=== PATIENT | male | born 1965 | race Caucasian/White ===

== ENCOUNTER 2024-11-13 09:18 | Outpatient (AMB) | payer OTHER, SELFPAY ==
[2024-11-13 09:26] VITALS: BP 120/74; PULSE 90; O2SAT 96; BMI 30.8
--- NOTE | 2024-11-13 09:26 | HO.NEPHOV_ITS ---
Vital Signs 11/13/24 09:26 Height 5 ft 10 in Weight 215 lb BMI 30.8 BP 120/74 Blood Pressure Location Lt brachial Position Sitting Pulse 90 Pulse Source Pulse Oximeter Pulse Oximetry (%) 96 Oxygen Delivery Method Room Air Intake Visit Reasons: ENP: Hypophosphatemia/ Conf Brazer Assembler Required: No Accompanied by: Self / Same As Patient Allergies cephalexin Allergy (Unknown, Verified 11/13/24 09:29) Unknown shellfish derived Allergy (Unknown, Verified 11/13/24 09:29) Seizure lodinated glycerol Allergy (Unknown, Uncoded 11/08/24 15:32) Unknown Medication List - Last Reconciled 11/13/24 by Antione Resendiz MD amlodipine 5 mg PO DAILY cholecalciferol (vitamin D3) 20 mcg PO DAILY lisinopril 20 mg PO DAILY magnesium aspart,citrate,oxide mg PO DAILY PRN tramadol 50 mg PO BEDTIME warfarin 10 mg PO DAILY HPI Comments Details: 59 yr old man referred for hypophosphatemia h/o HTN: BP well controlled Not on diuretics Currently on Amlodipine and Lisinopril h/o Leg injury in early . Developed severe reaction to IV contrast followed by cellulitis. Treated with Cephalexin and had 2-3 episodes of seizures. No further episodes Consumes 2 glasses of wine Non smoker Works in [employer] [facility] Medical History (Updated 11/13/24 @ 09:43 by Antione Resendiz MD) Osteoarthritis Hyperlipidemia Hypercoagulable state Deep vein thrombosis Benign essential hypertension Surgical History History of colonoscopy (~10/2019) Review of Systems Const Denies fever(s) and Denies weight loss Card Denies chest pain Resp Denies cough and Denies hemoptysis GI Denies abdominal pain, Denies diarrhea and Denies nausea Musc Denies back pain Neuro Denies focal weakness Physical Exam Vital Signs: Last Vital Signs Pulse 90 11/13/24 09:26 BP 120/74 11/13/24 09:26 Pulse Ox 96 11/13/24 09:26 Oxygen Delivery Method Room Air 11/13/24 09:26 BMI result Body Mass Index 30.8 Results Reviewed Results Reviewed: Phosphorous 1.9 Nephrology Results: No Data to Display Assessment & Plan Assessment & Plan (1) Hypophosphatemia: Code(s): E83.39 - Other disorders of phosphorus metabolism Category: Medical Plan 59 yr old man with Hypophosphatemia and normal renal function Work up initiated including a 24 hr urine collection Inadequate intakes vs excessive loss Recheck Ca/Mg and iPTH Further work up based on above No need for supplements yet Alcohol could be a potential source of Phosphaturia- urine studies should help to delineate this Reassured Orders: Orders Parathyroid Hormone Intact Today E83.39 - Other disorders of phosphorus metabolism Sodium, 24Hr Urine Group Today E83.39 - Other disorders of phosphorus metabolism Calcium, 24 Hr Ur Today E83.39 - Other disorders of phosphorus metabolism Basic Metabolic Panel Today E83.39 - Other disorders of phosphorus metabolism Magnesium Today E83.39 - Other disorders of phosphorus metabolism Phosphorus Today E83.39 - Other disorders of phosphorus metabolism Creatinine, 24 Hr Group Today E83.39 - Other disorders of phosphorus metabolism Phosphorus 24Hr Urine Group Today E83.39 - Other disorders of phosphorus metabolism Coding Level of Care Code New Pt Level 4 (93877) Diagnoses Hypophosphatemia E83.39
== END 2024-11-13 09:47 | disposition home or self-care (01) ==
PROVIDERS: PCP Family Medicine; Referring Provider Family Medicine; Visit Provider Internal Medicine Hypertension Specialist
DX: E83.39 Other disorders of phosphorus metabolism (principal)
CPT/HCPCS: 99204

== ENCOUNTER 2024-12-18 08:18 | Outpatient (AMB) | payer OTHER, SELFPAY ==
--- NOTE | 2024-12-18 08:26 | HO.NEPHOV ---
Vital Signs 12/18/24 08:27 Height 5 ft 10 in Weight 215 lb BMI 30.8 BP 120/76 Blood Pressure Location Lt brachial Position Sitting Pulse 71 Pulse Source Pulse Oximeter Pulse Oximetry (%) 97 Oxygen Delivery Method Room Air Intake Visit Reasons: 4-6wk follow-up w/labs/ Conf Housing Management Representative Required: No Accompanied by: Self / Same As Patient Allergies cephalexin Allergy (Unknown, Verified 12/18/24 08:32) Unknown shellfish derived Allergy (Unknown, Verified 12/18/24 08:32) Seizure lodinated glycerol Allergy (Unknown, Uncoded 11/08/24 15:32) Unknown Medication List - Last Reconciled 12/18/24 by Antione Resendiz MD amlodipine 5 mg PO DAILY cholecalciferol (vitamin D3) 20 mcg PO DAILY lisinopril 20 mg PO DAILY magnesium aspart,citrate,oxide mg PO DAILY PRN tramadol 50 mg PO BEDTIME warfarin 10 mg PO DAILY HPI Comments Details: 59 yr old man referred for hypophosphatemia h/o HTN: BP well controlled Not on diuretics Currently on Amlodipine and Lisinopril h/o Leg injury in early . Developed severe reaction to IV contrast followed by cellulitis. Treated with Cephalexin and had 2-3 episodes of seizures. No further episodes Consumes 2 glasses of wine Non smoker Works in [employer] 12/18/2024. Overall Karl has been doing well. Recently had some glass of wine along with chocolate chip cookies and subsequently developed racing heart and his blood pressure was 240/120. He did not seek any medical attention. This subsided after 5 or 10 minutes. Apparently he has had a similar episode in the past. [facility] Medical History (Updated 11/13/24 @ 09:43 by Antione Resendiz MD) Osteoarthritis Hyperlipidemia Hypercoagulable state Deep vein thrombosis Benign essential hypertension Surgical History History of colonoscopy (~10/2019) Physical Exam Vital Signs: Last Vital Signs Pulse 71 12/18/24 08:27 BP 120/76 12/18/24 08:27 Pulse Ox 97 12/18/24 08:27 Oxygen Delivery Method Room Air 12/18/24 08:27 BMI result Body Mass Index 30.8 Comfortable Neck supple no JVD. Lungs entry equal no rales. Heart S1-S2 heard no gallop or rub. Abdomen soft nontender. Neuro alert awake oriented. No asterixis. Extremities no edema. Const General: comfortable; No acute distress Orientation/consciousness: patient oriented x3 Eyes General: appearance normal, both eyes and all related structures Visual Collazo: normal visual collazo by confrontation Neck Neck: Yes supple and Yes no JVD Resp Effort & Inspection: normal respiratory effort and respiratory effort not decreased Cardio Palpation: no palpable S3 and no palpable S4 Heart sounds: no rubs GI Inspection: Yes normal to inspection Palpation (GI): Soft to palpation Percussion: Yes normal to percussion Auscultation: normal bowel sounds General: Yes no CVA tenderness Back/Spine/Pelvis Back: no CVA tenderness Skin General skin exam: no petechiae and no purpura Neuro General: patient oriented x3 and no focal motor deficits Extrem General: No clubbing and No edema Results Reviewed Results Reviewed: Phosphorous 1.9 Repeat serum phosphorus 2.3. Twenty-four urine collection showed phosphatase urea with a urine phosphorus excretion of 1849 mg. He had hypercalciuria as well Intact PTH was normal. Serum calcium was normal. Serum electrolytes normal. No hypokalemia. No hyperchloremic metabolic acidosis. Nephrology Results: No Data to Display Assessment & Plan Assessment & Plan (1) Hypophosphatemia: Code(s): E83.39 - Other disorders of phosphorus metabolism Category: Medical Plan 59 yr old man with Hypophosphatemia and normal renal function 24 hour urine collection reveals hyperphosphaturia and hypercalciuria. Since he has normal serum electrolytes without any hyperchloremic metabolic acidosis along with normal calcium I do not believe he has Fanconi syndrome. I have ordered 25 hydroxy and 125 hydroxy vitamin-D levels. Intact PTH was normal. Serum calcium was normal. No evidence of hyperparathyroidism If the vitamin-D levels were normal then he would require FGF 23 ( fibroblast growth factor 23) levels as this could be the potential cause for hyperphosphaturia In the meantime I have added phosphorus supplementation since he has persistent phosphoturia. Encouraged him to increase we will phosphate intake for now. He should refrain from excessive alcohol intake as this could also be a potential factor for hypophosphatemia Orders: Orders Phosphorus 4 Weeks E83.39 - Other disorders of phosphorus metabolism Vitamin D 25-OH Total 4 Weeks E8.39 - Other disorders of phosphorus metabolism Magnesium 4 Weeks E8.39 - Other disorders of phosphorus metabolism Calcium 4 Weeks E8.39 - Other disorders of phosphorus metabolism Vitamin D 1,25 dihydroxy 4 Weeks E8. - Other disorders of phosphorus metabolism Medications: New potassium,sodium monobas phos 305-700 mg 1 tab PO DAILY 90 tabs 0RF Coding Level of Care Code Est Pt Level 4 (76749) Diagnoses Hypophosphatemia E8
[2024-12-18 08:27] VITALS: BP 120/76; PULSE 71; O2SAT 97; BMI 30.8
== END 2024-12-18 09:00 | disposition home or self-care (01) ==
PROVIDERS: PCP Family Medicine; Visit Provider Internal Medicine Hypertension Specialist
DX: E83.39 Other disorders of phosphorus metabolism (principal)
CPT/HCPCS: 99214

== ENCOUNTER → 2024-12-18 08:18 | Outpatient (BNVA) | payer OTHER, SELFPAY | PROVIDERS: PCP Family Medicine; Visit Provider Internal Medicine Hypertension Specialist ==

== ENCOUNTER 2025-01-29 08:48 | Outpatient (AMB) | payer OTHER, SELFPAY ==
[2025-01-29 08:50] VITALS: BP 120/74; PULSE 79; O2SAT 98; BMI 31.8
--- NOTE | 2025-01-29 08:50 | HO.NEPHOV_ITS ---
Vital Signs 01/29/25 08:50 Height 5 ft 10 in Weight 221 lb 6 oz BMI 31.8 BP 120/74 Blood Pressure Location Lt brachial Position Sitting Pulse 79 Pulse Source Pulse Oximeter Pulse Oximetry (%) 98 Oxygen Delivery Method Room Air Intake Visit Reasons: 6wk follow-up w/labs/ Conf Allergies cephalexin Allergy (Unknown, Verified 01/29/25 08:52) Unknown shellfish derived Allergy (Unknown, Verified 01/29/25 08:52) Seizure lodinated glycerol Allergy (Unknown, Uncoded 01/29/25 08:52) Unknown Medication List - Last Reconciled 01/29/25 by Antione Resendiz MD amlodipine 5 mg PO DAILY cholecalciferol (vitamin D3) 20 mcg PO DAILY lisinopril 20 mg PO DAILY magnesium aspart,citrate,oxide mg PO DAILY PRN potassium,sodium monobas phos 305-700 mg 1 tab PO DAILY warfarin 10 mg PO DAILY HPI Comments Details: 59 yr old man referred for hypophosphatemia h/o HTN: BP well controlled Not on diuretics Currently on Amlodipine and Lisinopril h/o Leg injury in early . Developed severe reaction to IV contrast followed by cellulitis. Treated with Cephalexin and had 2-3 episodes of seizures. No further episodes Consumes 2 glasses of wine Non smoker Works in [employer] 12/18/2024. Overall Karl has been doing well. Recently had some glass of wine along with chocolate chip cookies and subsequently developed racing heart and his blood pressure was 240/120. He did not seek any medical attention. This subsided after 5 or 10 minutes. Apparently he has had a similar episode in the past. [facility] Medical History Osteoarthritis Hyperlipidemia Hypercoagulable state Deep vein thrombosis Benign essential hypertension Surgical History History of colonoscopy (~10/2019) Physical Exam Vital Signs: Last Vital Signs Pulse 79 01/29/25 08:50 BP 120/74 01/29/25 08:50 Pulse Ox 98 01/29/25 08:50 Oxygen Delivery Method Room Air 01/29/25 08:50 BMI result Body Mass Index 31.8 Comfortable Neck supple no JVD. Lungs entry equal no rales. Heart S1-S2 heard no gallop or rub. Abdomen soft nontender. Neuro alert awake oriented. No asterixis. Extremities no edema. Results Reviewed Nephrology Results: No Data to Display Assessment & Plan Assessment & Plan (1) Hypophosphatemia: Code(s): E83.39 - Other disorders of phosphorus metabolism Category: Medical Plan 59 yr old man with Hypophosphatemia and normal renal function 24 hour urine collection reveals hyperphosphaturia and hypercalciuria. Since he has normal serum electrolytes without any hyperchloremic metabolic acidosis along with normal calcium I do not believe he has Fanconi syndrome. I have ordered 25 hydroxy and 125 hydroxy vitamin-D levels. ~ Results not available. Intact PTH was normal. Serum calcium was normal. No evidence of hyperparathyroidism If the vitamin-D levels were normal then he would require FGF 23 ( fibroblast growth factor 23) levels as this could be the potential cause for hyperphosphaturia In the meantime I have added phosphorus supplementation since he has persistent phosphoturia. Encouraged him to increase we will phosphate intake for now. He should refrain from excessive alcohol intake as this could also be a potential factor for hypophosphatemia Orders: Orders Phosphorus 6 Months E83.39 - Other disorders of phosphorus metabolism Coding Level of Care Code Est Pt Level 4 (91335) Diagnoses Hypophosphatemia E83.39
== END 2025-01-29 09:04 | disposition home or self-care (01) ==
LOC: HO.HKAS 08:49
PROVIDERS: PCP Family Medicine; Visit Provider Internal Medicine Hypertension Specialist
DX: E83.39 Other disorders of phosphorus metabolism (principal)
CPT/HCPCS: 99214

== ENCOUNTER 2025-07-14 08:03 | Outpatient (REF) | payer OTHER, SELFPAY | END 2025-07-14 08:04 | disposition home or self-care (01) | LOC: HO.HKASLDS 08:03 | PROVIDERS: Visit Provider Internal Medicine Hypertension Specialist | DX: E83.39 Other disorders of phosphorus metabolism (principal) | CPT/HCPCS: 36415; 84100 ==

== ENCOUNTER 2025-07-16 08:22 | Outpatient (AMB) | payer OTHER, SELFPAY ==
[2025-07-16 08:32] VITALS: BP 122/80; PULSE 72; O2SAT 98; BMI 30.3
--- NOTE | 2025-07-16 08:32 | HO.NEPHOV ---
Vital Signs 07/16/25 08:32 Height 5 ft 10 in Weight 211 lb BMI 30.3 BP 122/80 Blood Pressure Location Lt brachial Position Sitting Pulse 72 Pulse Source Pulse Oximeter Pulse Oximetry (%) 98 Oxygen Delivery Method Room Air Intake Visit Reasons: 6 month f/u Angiographer Required: No Accompanied by: Self / Same As Patient Allergies cephalexin Allergy (Unknown, Verified 07/16/25 08:36) Unknown shellfish derived Allergy (Unknown, Verified 07/16/25 08:36) Seizure lodinated glycerol Allergy (Unknown, Uncoded 01/29/25 08:52) Unknown Medication List - Last Reconciled 07/16/25 by Antione Resendiz MD amlodipine 5 mg PO DAILY cholecalciferol (vitamin D3) 20 mcg PO DAILY lisinopril 20 mg PO DAILY magnesium aspart,citrate,oxide mg PO DAILY PRN potassium,sodium monobas phos 305-700 mg (K-Phos No 2) 1 tab PO DAILY warfarin 10 mg PO DAILY HPI Comments Details: 59 yr old man referred for hypophosphatemia h/o HTN: BP well controlled Not on diuretics Currently on Amlodipine and Lisinopril h/o Leg injury in early . Developed severe reaction to IV contrast followed by cellulitis. Treated with Cephalexin and had 2-3 episodes of seizures. No further episodes Consumes 2 glasses of wine Non smoker Works in [employer] 12/18/2024. Overall Karl has been doing well. Recently had some glass of wine along with chocolate chip cookies and subsequently developed racing heart and his blood pressure was 240/120. He did not seek any medical attention. This subsided after 5 or 10 minutes. Apparently he has had a similar episode in the past. 07/16/25 - The patient is a 59-year-old male presenting with hypophosphatemia management. - Persistent hypophosphatemia despite phosphorus supplementation. - Increased phosphorus excretion in urine suggests renal tubular defect. - No new medications; current medications include vitamin D3 and Isopril. - High water intake contributing to nocturia. - Occasional alcohol consumption with no significant intake recently. - Regular physical activity: walking six to eight miles daily. - Fatigue and sleep disturbances possibly related to stress. [facility] Medical History Osteoarthritis Hyperlipidemia Hypercoagulable state Deep vein thrombosis Benign essential hypertension Surgical History History of colonoscopy (~10/2019) Physical Exam Vital Signs: Last Vital Signs Pulse 72 07/16/25 08:32 BP 122/80 07/16/25 08:32 Pulse Ox 98 07/16/25 08:32 Oxygen Delivery Method Room Air 07/16/25 08:32 BMI result Body Mass Index 30.3 Comfortable Neck supple no JVD. Lungs entry equal no rales. Heart S1-S2 heard no gallop or rub. Abdomen soft nontender. Neuro alert awake oriented. No asterixis. Extremities no edema. Results Reviewed Nephrology Results: Phosphorus, (2.7-4.5) 1.7 mg/dL L 07/14/25 Assessment & Plan Assessment & Plan (1) Hypophosphatemia: Code(s): E83.39 - Other disorders of phosphorus metabolism Category: Medical Plan 59 yr old man with Hypophosphatemia and normal renal function 24 hour urine collection reveals hyperphosphaturia (1875) and hypercalciuria. Follow 25 hydroxy and 125 hydroxy vitamin-D levels. ~ Results not available. Intact PTH was normal. Serum calcium was normal. No evidence of hyperparathyroidism If the vitamin-D levels were normal then he would require FGF 23 ( fibroblast growth factor 23) levels as this could be the potential cause for hyperphosphaturia Increase phosphorus supplementation - 1 tab bid Continue to refrain from alcohol intake Orders: Orders Magnesium 2 Months E83.39 - Other disorders of phosphorus metabolism Phosphorus 2 Months E83.39 - Other disorders of phosphorus metabolism Cortisol, Free 2 Months E83.39 - Other disorders of phosphorus metabolism, R53.83 - Other fatigue Calcium 2 Months E83.39 - Other disorders of phosphorus metabolism Potassium 2 Months E83.39 - Other disorders of phosphorus metabolism TSH reflex Free T4 2 Months E83.39 - Other disorders of phosphorus metabolism, R53.83 - Other fatigue Medications: Changed From potassium,sodium monobas phos 305-700 mg (K-Phos No 2) 1 tab PO DAILY 30 tabs 2RF To potassium,sodium monobas phos 305-700 mg (K-Phos No 2) 1 tab PO BID 180 tabs 3RF Coding Level of Care Code Est Pt Level 4 (32050) Diagnoses Hypophosphatemia E83.39
--- OUTSIDE RECORDS SUMMARY | 2025-07-16 08:54 | XMS_ITS | Encounter Summary ---
Author Organization [facility] Address [address] [place] [address] Phone Care Team Providers Care Concrete Block Layer Name Role Phone Unavailable Primary Care Provider Unavailabl e Encounter Details Date Type Department Care Team (Late st Contact Info) Description 08/01/2019 Ancillary Orders [facility] [address] [place] [address] [place] [address] Woody Rosario, DO [address] [place] [address] Chest tightness Social History Tobacco Use Types Packs/Day Years Used Date Smoking Tobacco: Never Assessed Sex and Gender Information Value Date Recorded Sex Assigned at Not on file Legal Sex Male 11:13 AM EDT Gender Identity Not on file Sexual Orientation Not on file documented as of this encounter Plan of Treatment Not on file documented as of this encounter Results * Holter Monitor 24 Hours (08/01/2019 11:43 AM EDT) Anatomical Region Laterality Modality Heart Other Narrative 08/01/2019 12:43 PM EDT 24-hour monitor: Baseline rhythm is sinus with a minimum heart rate of 50, maximum 123, average 77 bpm. There are no long pauses present. Rare PACs and PVCs present. There is no diary submitted. There are no patient event markers. Impression: Normal 24-hour monitor. No diary submitted. Procedure Note Julito Julio MD - 08/01/2019 24-hour monitor: Baseline rhythm is sinus with a minimum heart rate of 50,maximum 123, average 77 bpm. There are no long pauses present. Rare PACsand PVCs present. There is no diary submitted. There are no patientevent markers. Impression: Normal 24-hour monitor. No diary submitted. us Woody Rosario DO [facility] ORDERABLE S Final Result documented in this encounter Visit Diagnoses Diagnosis Chest tightness Other chest pain Chest tightness Other chest pain documented in this encounter Additional Source Comments The information contained in this document represents components of the legal health record. It is not the complete legal health record.[facility]
--- OUTSIDE RECORDS SUMMARY | 2025-07-16 08:54 | XMS_ITS | Clinical Summary ---
Author Organization [facility] Address [address] [place], [place] [id number] Phone Care Team Providers Care Armor Reconnaissance Vehicle Crewman Name Role Phone Unavailable Primary Care Provider Unavailabl e Social History Tobacco Use Types Packs/Day Years Used Date Smoking Tobacco: Never Assessed Education Answer Date Recorded Are you interested in more education? Not on blaise e 02/10/2023 Are you concerned about learning? Not on file 02/10/2023 No 02/10/2023 No 02/10/2023 Digital Access Answer Date Recorded No 03/14/2023 No 03/14/2023 No 03/14/2023 Reliable internet access at home? Not on file 03/14/2023 Device with a working camera? Not on file Sex and Gender Information Value Date Recorded Sex Assigned at Not on file Legal Sex Male 11:13 AM EDT Gender Identity Not on file Sexual Orientation Not on file Plan of Treatment Not on file Medical Devices Not on file [place] [address] PPO PPO PPO PPO PPO PPO PPO [place] [place] [address] PPO Additional Source Comments The information contained in this document represents components of the legal health record. It is not the complete legal health record.[facility]
== END 2025-07-16 08:52 | disposition home or self-care (01) ==
LOC: HO.HKAS 08:23
PROVIDERS: PCP Family Medicine; Visit Provider Internal Medicine Hypertension Specialist
DX: E83.39 Other disorders of phosphorus metabolism (principal)
CPT/HCPCS: 99214

== ENCOUNTER 2025-09-15 09:17 | Outpatient (REF) | payer OTHER, SELFPAY ==
--- OUTSIDE RECORDS SUMMARY | 2025-09-15 10:57 | XMS_ITS | Encounter Summary ---
Author Organization [facility] Address [address] [place] [address] Phone Care Team Providers Care Glass Smoother Name Role Phone Unavailable Primary Care Provider Unavailabl e Encounter Details Date Type Department Care Team (Late st Contact Info) Description 08/01/2019 Ancillary Orders [facility] [address] [place] [address] [place] [address] Woody Rosario, DO [address] [place] [address] Chest tightness Social History Tobacco Use Types [...] It is not the complete legal health record.[facility]
--- OUTSIDE RECORDS SUMMARY | 2025-09-15 10:57 | XMS_ITS | Clinical Summary ---
Author Organization [facility] Address [address] [place] [phone] Phone Care Team Providers Care Manager Health Name Role Phone Unavailable Primary Care Provider [...] on file Medical Devices Not on file Additional Source Comments The information contained in this document represents components of the legal health record. It is not the complete legal health record.[facility]
[2025-09-15 14:07] LABS: Calcium 8.7 mg/dL (8.4-10.2); Magnesium 2.1 mg/dL (1.6-2.6); Potassium 4.5 mmol/L (3.3-5.1)
[2025-09-16 09:19] LABS: Lyme Abs Screen <0.90 index
[2025-09-21 13:33] LABS: Cortisol, Free 0.48 mcg/dL
== END 2025-09-15 09:18 | disposition home or self-care (01) ==
LOC: HO.HKASLDS 09:17
PROVIDERS: Absent Provider Family Medicine; PCP Family Medicine; Visit Provider Internal Medicine Hypertension Specialist
DX: I10 Essential (primary) hypertension (principal); E83.39 Other disorders of phosphorus metabolism; R53.83 Other fatigue; E78.00 Pure hypercholesterolemia, unspecified; I47.10 Supraventricular tachycardia, unspecified; Z86.718 Personal history of other venous thrombosis and embolism
CPT/HCPCS: 36415; 82310; 82530; 83735; 84100; 84132; 84403; 84443; 86617; 86618

== ENCOUNTER 2025-10-01 08:22 | Outpatient (AMB) | payer OTHER, SELFPAY ==
--- NOTE | 2025-10-01 08:39 | HO.NEPHOV_ITS ---
Vital Signs 10/01/25 08:40 Height 5 ft 10 in Weight 216 lb BMI 31.0 BP 132/82 Blood Pressure Location Lt brachial Position Sitting Pulse 72 Pulse Source Pulse Oximeter Pulse Oximetry (%) 97 Oxygen Delivery Method Room Air Intake Visit Reasons: [employer] Required: No Accompanied by: Self / Same As Patient Allergies cephalexin Allergy (Unknown, Verified 10/01/25 08:41) Unknown shellfish derived Allergy (Unknown, Verified 10/01/25 08:41) Seizure lodinated glycerol Allergy (Unknown, Uncoded 01/29/25 08:52) Unknown Medication List - Last Reconciled 10/01/25 by Antione Resendiz MD amlodipine 5 mg PO DAILY cholecalciferol (vitamin D3) 20 mcg PO DAILY lisinopril 20 mg PO DAILY magnesium aspart,citrate,oxide mg PO DAILY PRN potassium,sodium monobas phos 305-700 mg (K-Phos No 2) 1 tab PO BID warfarin 10 mg PO DAILY HPI Comments Details: History of Present Illness The patient is a 60 year old male presenting for follow-up of hypophosphatemia. He has a history of well-controlled hypertension and is currently taking amlodipine and lisinopril. He takes two phosphorus pills once a day after supper, along with his other medications and vitamin D. He recently saw a [employer] web[employer] commerce developer for a heart murmur and underwent a two-week Holter monitor study which showed four short, non-threatening episodes. He was advised it was not concerning and is scheduled to follow up with cardiology in six months. The patient reports nocturia, which he attributes to drinking tea around 7 PM. He denies any constipation, diarrhea, leg swelling, or bone pain. Recent lab workup showed normal Lyme titer, cortisol, thyroid function, testosterone, magnesium, calcium, and potassium levels, and a negative parasite test. Results - Labs: - Phosphorus: 1.9 mg/dL (previously 1.7 mg/dL). - Lyme titer: Normal. - Cortisol: 0.48 (normal range). - Thyroid function tests: Normal. - Testosterone: 639 ng/dL. - Magnesium, Calcium, Potassium: Normal. - Parasite test: Negative. - Tests and Diagnostics: - Holter monitor (2 weeks): Showed four short, non-threatening episodes. [facility] Medical History Osteoarthritis Hyperlipidemia Hypercoagulable state Deep vein thrombosis Benign essential hypertension Surgical History History of colonoscopy (~10/2019) Physical Exam Exam Exam: Physical Exam General: Awake. Comfortable. HENT: Neck supple. Mucosa moist. Pulmonary: Lungs aeration equal. No rales. Cardiology: Heart S1-S2 heard. Murmur present, nonthreatening. Abdomen: Soft. Non tender. Bowel sounds normal. Neurologic: No involuntary movements. No myoclonus. Extremities: No edema. No rash. Vital Signs: Last Vital Signs Pulse 72 10/01/25 08:40 BP 132/82 10/01/25 08:40 Pulse Ox 97 10/01/25 08:40 Oxygen Delivery Method Room Air 10/01/25 08:40 BMI result Body Mass Index 31.0 Results Reviewed Nephrology Results: Potassium, (3.3-5.1) 4.5 mmol/L 09/15/25 Calcium, (8.4-10.2) 8.7 mg/dL 09/15/25 Phosphorus, (2.7-4.5) 1.9 mg/dL L 09/15/25 Assessment & Plan Assessment & Plan (1) Hypophosphatemia: Code(s): E83.39 - Other disorders of phosphorus metabolism Category: Medical Plan Plan 1. Hypophosphatemia - The patient has renal phosphate wasting, and though his phosphorus level has improved to 1.9 from 1.7, the goal is to maintain it above 2.0. - The dose of the phosphorus supplement will be increased to three pills per day. - The patient plans to split the dose, taking two pills in the morning and one in the evening, to improve absorption. - A prescription will be sent for a 3-month supply with refills. - Ordered follow-up blood work in one month to check phosphorus levels. - Plan to follow up in six months. 2. Nocturia - The patient reports nocturia, which may be associated with consuming tea in the evening. - Advised to drink his tea earlier in the afternoon, around 4 PM, to potentially reduce nighttime urination. 3. Heart Murmur - Recent cardiology evaluation, including a 2-week Holter monitor, deemed the murmur non-threatening. - The patient will continue to follow up with his [employer] commerce developer as scheduled in six months. Orders: Orders Phosphorus 1 Month E83.39 - Other disorders of phosphorus metabolism Medications: Changed From potassium,sodium monobas phos 305-700 mg (K-Phos No 2) 1 tab PO BID 180 tabs 3RF To potassium,sodium monobas phos 305-700 mg (K-Phos No 2) 1 tab PO TID 270 tabs 3RF Coding Level of Care Code Est Pt Level 4 (13631) Diagnoses Hypophosphatemia E83.39
[2025-10-01 08:40] VITALS: BP 132/82; PULSE 72; O2SAT 97; BMI 31.0
== END 2025-10-01 08:51 | disposition home or self-care (01) ==
LOC: HO.HKAS 08:22
PROVIDERS: PCP Family Medicine; Visit Provider Internal Medicine Hypertension Specialist
DX: E83.39 Other disorders of phosphorus metabolism (principal)
CPT/HCPCS: 99214